=== PATIENT | female | born 1940 | race Caucasian/White ===

== ENCOUNTER 2021-05-26 13:11 | Inpatient (IN) | payer MEDICARE ==
[~2021-05-26] VITALS: Ht 160 cm; Wt 52.2 kg
[2021-05-26 13:44] LABS: BASOPHILS % 0.3 % (0.0-1.0); EOSINOPHILS # (AUTO) 0.1 (0.0-0.4); EOSINOPHILS % 1.1 % (0.0-6.0); HEMATOCRIT 36.9 % (34.2-44.1); HEMOGLOBIN 11.9 g/dL (12.0-16.0); LYMPHOCYTES # (AUTO) 1.6 (1.0-3.2); LYMPHOCYTES % 25.3 % (18.0-39.1); MEAN CORPUSCULAR HEMOGLOBIN 30.8 pg (28-32); MEAN CORPUSCULAR HGB CONC 32.2 g/dL (31-35); MEAN CORPUSCULAR VOLUME 95.6 fL (81-99); MONOCYTES # (AUTO) 0.6 (0.2-0.8); MONOCYTES % 9.7 % (4.4-11.3); NEUTROPHILS # (AUTO) 3.9 (2.1-6.9); NEUTROPHILS % 63.4 % (38.7-80.0); PLATELET COUNT 157 x10e3/uL (140-360); RED BLOOD COUNT 3.86 x10e6/uL (3.6-5.1); RED CELL DISTRIBUTION WIDTH 16.1 % (11.7-14.4)
[2021-05-26] MEDS ORDERED: SODIUM CHLORIDE 0.9% 1000ML 1,000 ML IV STA (13:48)
[2021-05-26 14:04] LABS: ALBUMIN 3.5 g/dL (3.5-5.0); ALBUMIN/GLOBULIN RATIO 0.7 (0.8-2.0); ANION GAP 14.8 mmol/L (8-16); CALCIUM 9.6 mg/dL (8.4-10.2); CREATININE, SERUM 2.39 mg/dL (0.57-1.11); POTASSIUM 4.8 mmol/L (3.5-5.1)
[2021-05-26 14:11] LABS: CREATINE KINASE MB 4.5 ng/mL (0-5.0)
[2021-05-26 14:33] LABS: CLARITY,URINE SL CLOUDY (CLEAR); COLOR,URINE AMBER (YELLOW); LEUKOCYTE ESTERASE ,URINE NEGATIVE (NEGATIVE); NITRITE,URINE POSITIVE (NEGATIVE)
[2021-05-26 14:34] LABS: KETONES,URINE TRACE (NEGATIVE); PROTEIN,URINE DIPSTICK TRACE (NEGATIVE); URINE UROBILINOGEN 0.2 mg/dL (0.2 - 1)
[2021-05-26 14:55] LABS: BACTERIA,URINE MANY /HPF; EPITHELIAL CELLS,URINE FEW /LPF; RBC,URINE 21-50 /HPF (0-5); WBC,URINE (MAN) 0-5 /HPF (0-5)
[2021-05-26 14:58] LABS: CALCIUM OXALATE CRYSTALS,UR MANY (FEW)
[2021-05-26] MEDS ORDERED: SODIUM CHLORIDE 0.9% 1000ML 1,000 ML IV ONE (15:45)
[2021-05-26] MEDS ORDERED: ACETAMINOPHEN 325 MG TAB PO PRN (15:45)
[2021-05-26] MEDS: CEFTRIAXONE 1 GM in SODIUM CHLORIDE 0.9% 50ML 50 ML IV SCH (15:56)
[2021-05-26 17:30] VITALS: BP 99/85
[2021-05-26 17:32] VITALS: BP 99/85
[2021-05-26 17:36] VITALS: BP 99/85
[2021-05-26] MEDS ORDERED: PLAVIX75 MG PO (18:31)
[2021-05-26] MEDS ORDERED: ATENOLOL50 MG PO (18:31)
[2021-05-26] MEDS ORDERED: METRONIDAZOLE500 MG PO (18:31)
[2021-05-26] MEDS ORDERED: ATORVASTATIN CA20 MG PO (18:31)
[2021-05-26] MEDS ORDERED: LOSARTAN POTAS100 MG PO (18:31)
[2021-05-26] MEDS ORDERED: VANCOCIN HCL250 MG PO (18:31)
[2021-05-26] MEDS ORDERED: AMLODIPINE BESYL5 MG PO (18:31)
[2021-05-26] MEDS ORDERED: FAMOTIDINE20 MG PO (18:31)
[2021-05-26] MEDS ORDERED: SERTRALINE HCL100 MG PO (18:31)
[2021-05-26 20:00] VITALS: BP 112/68
[2021-05-26 20:10] VITALS: BP 99/85
[2021-05-27] VITALS (8 sets, daily range): BP systolic 110–182; BP diastolic 62–84
[2021-05-27 02:27] LABS: CREATINE KINASE MB 2.9 ng/mL (0-5.0)
[2021-05-27 07:15] LABS: BASOPHILS % 0.4 % (0.0-1.0); EOSINOPHILS # (AUTO) 0.1 (0.0-0.4); EOSINOPHILS % 1.3 % (0.0-6.0); HEMATOCRIT 31.4 % (34.2-44.1); HEMOGLOBIN 9.9 g/dL (12.0-16.0); LYMPHOCYTES # (AUTO) 1.7 (1.0-3.2); LYMPHOCYTES % 34.7 % (18.0-39.1); MEAN CORPUSCULAR HEMOGLOBIN 30.4 pg (28-32); MEAN CORPUSCULAR HGB CONC 31.5 g/dL (31-35); MEAN CORPUSCULAR VOLUME 96.3 fL (81-99); MONOCYTES # (AUTO) 0.4 (0.2-0.8); MONOCYTES % 8.4 % (4.4-11.3); NEUTROPHILS # (AUTO) 2.6 (2.1-6.9); NEUTROPHILS % 54.8 % (38.7-80.0); PLATELET COUNT 102 x10e3/uL (140-360); RED BLOOD COUNT 3.26 x10e6/uL (3.6-5.1); RED CELL DISTRIBUTION WIDTH 15.5 % (11.7-14.4)
[2021-05-27 07:46] LABS: ALBUMIN 2.7 g/dL (3.5-5.0); ALBUMIN/GLOBULIN RATIO 0.8 (0.8-2.0); ANION GAP 9.4 mmol/L (8-16); CALCIUM 8.1 mg/dL (8.4-10.2); CREATININE, SERUM 1.48 mg/dL (0.57-1.11); POTASSIUM 4.4 mmol/L (3.5-5.1)
[2021-05-27 08:14] LABS: CREATINE KINASE MB 2.3 ng/mL (0-5.0)
[2021-05-27] MEDS: CEFTRIAXONE 1 GM in SODIUM CHLORIDE 0.9% 50ML 50 ML IV SCH (09:28)
[2021-05-27] MEDS: LOSARTAN POTASSIUM 100 MG TAB PO SCH (10:16)
[2021-05-27] MEDS: CLOPIDOGREL BISULFATE 75 MG TAB PO SCH (10:17)
[2021-05-27] MEDS: FAMOTIDINE 20 MG TAB PO SCH (10:17)
[2021-05-27] MEDS: ATENOLOL 50 MG TAB PO SCH (10:17)
[2021-05-27] MEDS: AMLODIPINE BESYLATE 5 MG TAB PO SCH (10:17)
[2021-05-27] MEDS: SODIUM CHLORIDE 0.9% 1000ML 1,000 ML IV SCH (12:16)
[2021-05-27] MEDS: ATORVASTATIN 20 MG TAB PO SCH (20:13)
[2021-05-27] MEDS: SERTRALINE HCL 100 MG TAB PO SCH (20:13)
[2021-05-28] VITALS (7 sets, daily range): BP systolic 161–182; BP diastolic 69–83
[2021-05-28] MEDS: SODIUM CHLORIDE 0.9% 1000ML 1,000 ML IV SCH ×2 (00:49→13:36)
[2021-05-28 06:15] LABS: BASOPHILS % 0.3 % (0.0-1.0); EOSINOPHILS # (AUTO) 0.1 (0.0-0.4); EOSINOPHILS % 0.8 % (0.0-6.0); HEMATOCRIT 31.7 % (34.2-44.1); HEMOGLOBIN 10.1 g/dL (12.0-16.0); MEAN CORPUSCULAR HEMOGLOBIN 30.4 pg (28-32); MEAN CORPUSCULAR HGB CONC 31.9 g/dL (31-35); MEAN CORPUSCULAR VOLUME 95.5 fL (81-99); MONOCYTES # (AUTO) 0.5 (0.2-0.8); MONOCYTES % 6.9 % (4.4-11.3); NEUTROPHILS # (AUTO) 4.5 (2.1-6.9); NEUTROPHILS % 63.7 % (38.7-80.0); PLATELET COUNT 120 x10e3/uL (140-360); RED BLOOD COUNT 3.32 x10e6/uL (3.6-5.1); RED CELL DISTRIBUTION WIDTH 15.5 % (11.7-14.4)
[2021-05-28 06:47] LABS: ANION GAP 9.5 mmol/L (8-16); CALCIUM 8.5 mg/dL (8.4-10.2); CREATININE, SERUM 1.08 mg/dL (0.57-1.11); MAGNESIUM 1.4 MG/DL (1.3-2.1); POTASSIUM 4.5 mmol/L (3.5-5.1)
[2021-05-28] MEDS: CEFTRIAXONE 1 GM in SODIUM CHLORIDE 0.9% 50ML 50 ML IV SCH (08:48)
[2021-05-28] MEDS: AMLODIPINE BESYLATE 5 MG TAB PO SCH (08:50)
[2021-05-28] MEDS: LOSARTAN POTASSIUM 100 MG TAB PO SCH (08:50)
[2021-05-28] MEDS: CLOPIDOGREL BISULFATE 75 MG TAB PO SCH (08:50)
[2021-05-28] MEDS: FAMOTIDINE 20 MG TAB PO SCH (08:50)
[2021-05-28] MEDS: VANCOMYCIN 250MG/5ML ORAL SOLN PO SCH (08:51)
[2021-05-28] MEDS: ATENOLOL 50 MG TAB PO SCH (08:51)
[2021-05-28] MEDS: DOCUSATE SODIUM 100 MG CAP PO SCH (09:00)
[2021-05-28] MEDS: SENNOSIDES 8.6 MG TAB PO SCH (09:00)
[2021-05-28] MEDS ORDERED: LOPERAMIDE HCL 2 MG CAP PO PRN (09:45)
[2021-05-28] MEDS: MAGNESIUM SULFATE 2GM/50ML 50 ML IV SCH ×2 (13:36→15:00)
[2021-05-28] MEDS: SERTRALINE HCL 100 MG TAB PO SCH (20:44)
[2021-05-28] MEDS: ATORVASTATIN 20 MG TAB PO SCH (20:44)
[2021-05-28] MEDS: ONDANSETRON HCL INJ 2MG/ML 2ML 2 MG/ML VIAL IV PRN (21:32)
[2021-05-29] VITALS: BP 118/88
[2021-05-29] MEDS: SODIUM CHLORIDE 0.9% 1000ML 1,000 ML IV SCH (02:48)
[2021-05-29 04:00] VITALS: BP 194/82
[2021-05-29 06:00] VITALS: BP 165/75
[2021-05-29 06:09] LABS: BASOPHILS % 0.3 % (0.0-1.0); EOSINOPHILS % 0.2 % (0.0-6.0); HEMATOCRIT 32.8 % (34.2-44.1); HEMOGLOBIN 10.7 g/dL (12.0-16.0); LYMPHOCYTES # (AUTO) 2.3 (1.0-3.2); MEAN CORPUSCULAR HEMOGLOBIN 30.6 pg (28-32); MEAN CORPUSCULAR HGB CONC 32.6 g/dL (31-35); MEAN CORPUSCULAR VOLUME 93.7 fL (81-99); MONOCYTES # (AUTO) 0.8 (0.2-0.8); MONOCYTES % 8.2 % (4.4-11.3); NEUTROPHILS # (AUTO) 6.9 (2.1-6.9); PLATELET COUNT 115 x10e3/uL (140-360); RED CELL DISTRIBUTION WIDTH 15.3 % (11.7-14.4)
[2021-05-29 06:35] LABS: ANION GAP 9.6 mmol/L (8-16); CALCIUM 8.1 mg/dL (8.4-10.2); CREATININE, SERUM 0.89 mg/dL (0.57-1.11); MAGNESIUM 1.8 MG/DL (1.3-2.1); POTASSIUM 3.6 mmol/L (3.5-5.1)
[2021-05-29 08:29] VITALS: BP 143/94
[2021-05-29] MEDS: CEFTRIAXONE 1 GM in SODIUM CHLORIDE 0.9% 50ML 50 ML IV SCH (09:49)
[2021-05-29] MEDS: DOCUSATE SODIUM 100 MG CAP PO SCH (09:49)
[2021-05-29] MEDS: FAMOTIDINE 20 MG TAB PO SCH (09:50)
[2021-05-29] MEDS: VANCOMYCIN 250MG/5ML ORAL SOLN PO SCH (09:50)
[2021-05-29] MEDS: ATENOLOL 50 MG TAB PO SCH (09:50)
[2021-05-29] MEDS: SENNOSIDES 8.6 MG TAB PO SCH (09:50)
[2021-05-29] MEDS: AMLODIPINE BESYLATE 5 MG TAB PO SCH (09:50)
[2021-05-29] MEDS: CLOPIDOGREL BISULFATE 75 MG TAB PO SCH (09:50)
[2021-05-29] MEDS: LOSARTAN POTASSIUM 100 MG TAB PO SCH (10:29)
[2021-05-29 20:26] VITALS: BP 169/67
[2021-05-29] MEDS: SERTRALINE HCL 100 MG TAB PO SCH (21:00)
[2021-05-29] MEDS: ATORVASTATIN 40 MG TAB PO SCH (21:00)
[2021-05-30] VITALS (7 sets, daily range): BP systolic 114–174; BP diastolic 52–69
[2021-05-30] MEDS: HYDRALAZINE HCL 20 MG/ML VIAL IV PRN ×2 (00:20→04:55)
[2021-05-30] MEDS: FAMOTIDINE 20 MG TAB PO SCH (09:02)
[2021-05-30] MEDS: AMLODIPINE BESYLATE 5 MG TAB PO SCH (09:02)
[2021-05-30] MEDS: LOSARTAN POTASSIUM 100 MG TAB PO SCH (09:02)
[2021-05-30] MEDS: CEFTRIAXONE 1 GM in SODIUM CHLORIDE 0.9% 50ML 50 ML IV SCH (09:02)
[2021-05-30] MEDS: CLOPIDOGREL BISULFATE 75 MG TAB PO SCH (09:02)
[2021-05-30] MEDS: DOCUSATE SODIUM 100 MG CAP PO SCH (09:02)
[2021-05-30] MEDS: SENNOSIDES 8.6 MG TAB PO SCH (09:03)
[2021-05-30] MEDS: ATENOLOL 50 MG TAB PO SCH (09:03)
[2021-05-30] MEDS: VANCOMYCIN 250MG/5ML ORAL SOLN PO SCH (09:03)
[2021-05-30] MEDS: ONDANSETRON HCL INJ 2MG/ML 2ML 2 MG/ML VIAL IV PRN (09:13)
[2021-05-30] MEDS ORDERED: AZITHROMYCIN 250 MG TAB PO SCH (09:30)
[2021-05-30] MEDS ORDERED: CHOLESTYRAMINE 4 GM PACKET PO PRN (14:30)
[2021-05-30] MEDS ORDERED: FUROSEMIDE INJ 10 MG/ML 4 ML VIAL IV ONE (15:00)
[2021-05-30] MEDS: ATORVASTATIN 40 MG TAB PO SCH (20:49)
[2021-05-30] MEDS: SERTRALINE HCL 100 MG TAB PO SCH (20:50)
[2021-05-31 05:26] LABS: ANION GAP 14.5 mmol/L (8-16); CALCIUM 8.6 mg/dL (8.4-10.2); CREATININE, SERUM 1.14 mg/dL (0.57-1.11); POTASSIUM 3.5 mmol/L (3.5-5.1)
[2021-05-31 05:41] VITALS: BP 173/78
[2021-05-31] MEDS: HYDRALAZINE HCL 20 MG/ML VIAL IV PRN ×2 (05:55→09:57)
[2021-05-31 06:51] VITALS: BP 158/60
[2021-05-31] MEDS: CLOPIDOGREL BISULFATE 75 MG TAB PO SCH (08:13)
[2021-05-31] MEDS: ATENOLOL 50 MG TAB PO SCH (08:13)
[2021-05-31] MEDS: FAMOTIDINE 20 MG TAB PO SCH (08:13)
[2021-05-31] MEDS: AMLODIPINE BESYLATE 5 MG TAB PO SCH (08:13)
[2021-05-31] MEDS: CEFTRIAXONE 1 GM in SODIUM CHLORIDE 0.9% 50ML 50 ML IV SCH (08:13)
[2021-05-31] MEDS: LOSARTAN POTASSIUM 100 MG TAB PO SCH (08:13)
[2021-05-31 08:17] VITALS: BP 182/67
[2021-05-31 08:20] VITALS: BP 182/67
[2021-05-31] MEDS ORDERED: AZITHROMYCIN 250 MG TAB PO SCH (09:00)
[2021-05-31 12:05] VITALS: BP 136/55
[2021-05-31 15:56] VITALS: BP 125/62
[2021-05-31] MEDS ORDERED: HYDRALAZINE HCL 25 MG TAB PO SCH (17:00)
== END 2021-05-31 16:34 | disposition home or self-care (01) | DRG 193 ==
LOC: ER 13:57 → ERHOLD 15:34 → OBSVTOIN 15:34 → INTOOBSV 15:34 → MED/SURG2 16:48
PROVIDERS: ADMIT Internal Medicine; ATTEND Internal Medicine
DX: J18.9 Pneumonia, unspecified organism (principal); G93.41 Metabolic encephalopathy; N17.9 Acute kidney failure, unspecified; E44.1 Mild protein-calorie malnutrition; R40.0 Somnolence; I25.10 Atherosclerotic heart disease of native coronary artery without angina pectoris; I12.9 Hypertensive chronic kidney disease with stage 1 through stage 4 chronic kidney disease, or unspecified chronic kidney disease; N18.32 Chronic kidney disease, stage 3b; K21.9 Gastro-esophageal reflux disease without esophagitis; Z88.5 Allergy status to narcotic agent; Z88.2 Allergy status to sulfonamides; Z91.041 Radiographic dye allergy status; Z20.822 Contact with and (suspected) exposure to COVID-19; Z86.19 Personal history of other infectious and parasitic diseases; Z68.20 Body mass index [BMI] 20.0-20.9, adult
CPT/HCPCS: 36415; 70450; 71045; 71046; 74176; 80048; 80053; 81001; 82140; 82550; 82553; 82948; 83735; 84484; 85025; 87086; 87493; 93005; 94799; 97139; 99251; 99284; J0360; J0456; J0696; J1940; J2405; J3475; J7030; J7050; U0002

== ENCOUNTER 2022-06-13 19:49 | Emergency (ER) | payer MEDICARE, OTHER ==
[~2022-06-13] VITALS: Ht 160 cm; Wt 52.2 kg
[~2022-06-13 19:49] MED LIST: AMLODIPINE BESYL5 MG PO; ATENOLOL50 MG PO; ATORVASTATIN CA20 MG PO; FAMOTIDINE20 MG PO; LOSARTAN POTAS100 MG PO; METRONIDAZOLE500 MG PO; PLAVIX75 MG PO; SERTRALINE HCL100 MG PO; VANCOCIN HCL250 MG PO
[2022-06-13] MEDS ORDERED: DOXYCYCLINE HY100 MG PO (21:42)
[2022-06-13 21:53] VITALS: BP 153/85
== END 2022-06-13 21:48 | disposition home or self-care (01) ==
LOC: ER 20:12
DX: L97.829 Non-pressure chronic ulcer of other part of left lower leg with unspecified severity (principal); L97.819 Non-pressure chronic ulcer of other part of right lower leg with unspecified severity; I10 Essential (primary) hypertension; N28.9 Disorder of kidney and ureter, unspecified; I25.10 Atherosclerotic heart disease of native coronary artery without angina pectoris
CPT/HCPCS: 99282

== ENCOUNTER 2022-08-06 20:15 | Emergency (ER) | payer MEDICARE ==
[~2022-08-06] VITALS: Ht 160 cm; Wt 52.2 kg
[~2022-08-06 20:15] MED LIST changes: +DOXYCYCLINE HY100 MG PO
[2022-08-06] MEDS ORDERED: HYDROCODONE/APAP 5MG-325MG TAB PO ONE (20:30)
[2022-08-06] MEDS ORDERED: HYDROCODON-ACE1 EA11 PO (22:36)
[2022-08-06 23:00] VITALS: BP 155/68; PULSE 65; RESP 16; TEMP 98.2; O2SAT 100
== END 2022-08-06 22:50 | disposition home or self-care (01) ==
LOC: ER 20:17
DX: M25.531 Pain in right wrist (principal); S52.591A Other fractures of lower end of right radius, initial encounter for closed fracture; S52.691A Other fracture of lower end of right ulna, initial encounter for closed fracture; W01.0XXA Fall on same level from slipping, tripping and stumbling without subsequent striking against object, initial encounter; Y92.89 Other specified places as the place of occurrence of the external cause
CPT/HCPCS: 99284

== ENCOUNTER 2023-09-20 11:13 | Emergency (ER) | payer MEDICARE ==
[~2023-09-20] VITALS: Ht 160 cm; Wt 52.2 kg
[~2023-09-20 11:13] MED LIST changes: +HYDROCODON-ACE1 EA11 PO
[2023-09-20 11:15] VITALS: TEMP 97.9
[2023-09-20 12:03] LABS: BASOPHILS % 0.4 % (0.0-1.0); EOSINOPHILS % 0.4 % (0.0-6.0); HEMATOCRIT 34.2 % (34.2-44.1); HEMOGLOBIN 11.4 g/dL (12.0-16.0); LYMPHOCYTES # (AUTO) 1.3 (1.0-3.2); LYMPHOCYTES % 17.3 % (18.0-39.1); MEAN CORPUSCULAR HEMOGLOBIN 32.7 pg (28-32); MEAN CORPUSCULAR HGB CONC 33.3 g/dL (31-35); MONOCYTES # (AUTO) 0.7 (0.2-0.8); MONOCYTES % 8.9 % (4.4-11.3); NEUTROPHILS # (AUTO) 5.6 (2.1-6.9); NEUTROPHILS % 72.7 % (38.7-80.0); PLATELET COUNT 150 x10e3/uL (140-360); RED BLOOD COUNT 3.49 x10e6/uL (3.6-5.1); RED CELL DISTRIBUTION WIDTH 13.2 % (11.7-14.4); WHITE BLOOD COUNT 7.65 x10e3/uL (4.8-10.8)
[2023-09-20 12:38] LABS: ALBUMIN 3.1 g/dL (3.5-5.0); ALBUMIN/GLOBULIN RATIO 0.7 (0.8-2.0); ANION GAP 16.5 mmol/L (8-16); BILIRUBIN,TOTAL 0.6 mg/dL (0.2-1.2); CALCIUM 9.4 mg/dL (8.4-10.2); CREATININE, SERUM 1.73 mg/dL (0.57-1.11); POTASSIUM 3.5 mmol/L (3.5-5.1); TOTAL PROTEIN 7.7 g/dL (6.5-8.1)
[2023-09-20] MEDS: SODIUM CHLORIDE 0.9% 1000ML 1,000 ML IV ONE (12:45)
[2023-09-20 14:34] LABS: CLARITY,URINE SL CLOUDY (CLEAR); COLOR,URINE YELLOW (YELLOW); GLUCOSE, URINE NEGATIVE (NEGATIVE); KETONES,URINE NEGATIVE (NEGATIVE); LEUKOCYTE ESTERASE ,URINE NEGATIVE (NEGATIVE); NITRITE,URINE NEGATIVE (NEGATIVE); PH,URINE 5.5 (5 - 7); PROTEIN,URINE DIPSTICK 1+ (NEGATIVE); URINE UROBILINOGEN 0.2 mg/dL (0.2 - 1)
[2023-09-20 14:35] LABS: BILIRUBIN,URINE NEGATIVE (NEGATIVE)
[2023-09-20 14:45] LABS: BACTERIA,URINE MODERATE /HPF; EPITHELIAL CELLS,URINE RARE /LPF; RBC,URINE 0-5 /HPF (0-5); WBC,URINE (MAN) 0-5 /HPF (0-5)
[2023-09-20 15:24] VITALS: PULSE 63; RESP 17; O2SAT 100
== END 2023-09-20 16:46 | disposition home or self-care (01) ==
LOC: ER 11:28
DX: R19.7 Diarrhea, unspecified (principal); E86.1 Hypovolemia; M25.532 Pain in left wrist; M25.432 Effusion, left wrist; I10 Essential (primary) hypertension; I25.10 Atherosclerotic heart disease of native coronary artery without angina pectoris; N28.9 Disorder of kidney and ureter, unspecified; M19.09 Primary osteoarthritis, other specified site
CPT/HCPCS: 36415; 73110; 74176; 80053; 81001; 83690; 85025; 99284; J7030

== ENCOUNTER 2024-02-09 13:50 | Inpatient (IN) | payer MEDICARE ==
[~2024-02-09] VITALS: Ht 167.6 cm; Wt 52.2 kg
[2024-02-09] VITALS (7 sets, daily range): BP systolic 123–155; BP diastolic 40–57; PULSE 66–77; RESP 16–18; TEMP 97.6–98.4; O2SAT 94–100
[2024-02-09 14:22] LABS: BASOPHILS % 0.2 % (0.0-1.0); EOSINOPHILS # (AUTO) 0.1 (0.0-0.4); EOSINOPHILS % 0.6 % (0.0-6.0); HEMATOCRIT 33.7 % (34.2-44.1); HEMOGLOBIN 10.2 g/dL (12.0-16.0); LYMPHOCYTES # (AUTO) 1.5 (1.0-3.2); LYMPHOCYTES % 14.9 % (18.0-39.1); MEAN CORPUSCULAR HEMOGLOBIN 31.6 pg (28-32); MEAN CORPUSCULAR HGB CONC 30.3 g/dL (31-35); MEAN CORPUSCULAR VOLUME 104.3 fL (81-99); MONOCYTES # (AUTO) 0.7 (0.2-0.8); MONOCYTES % 6.8 % (4.4-11.3); NEUTROPHILS # (AUTO) 7.9 (2.1-6.9); NEUTROPHILS % 77.1 % (38.7-80.0); PLATELET COUNT 104 x10e3/uL (140-360); RED BLOOD COUNT 3.23 x10e6/uL (3.6-5.1); RED CELL DISTRIBUTION WIDTH 12.3 % (11.7-14.4); WHITE BLOOD COUNT 10.23 x10e3/uL (4.8-10.8)
[2024-02-09 14:41] LABS: ALBUMIN 3.1 g/dL (3.5-5.0); ALBUMIN/GLOBULIN RATIO 0.7 (0.8-2.0); ANION GAP 15.8 mmol/L (8-16); BILIRUBIN,TOTAL 0.5 mg/dL (0.2-1.2); CALCIUM 9.2 mg/dL (8.4-10.2); CREATININE, SERUM 2.88 mg/dL (0.57-1.11); POTASSIUM 3.8 mmol/L (3.5-5.1); TOTAL PROTEIN 7.4 g/dL (6.5-8.1)
[2024-02-09 14:47] LABS: TROPONIN I 0.022 ng/mL (0-0.300)
[2024-02-09] MEDS ORDERED: TERAZOSIN HCL1 MG PO (15:11)
[2024-02-09] MEDS ORDERED: LYRICA25 MG PO (15:11)
[2024-02-09] MEDS ORDERED: MEMANTINE HCL10 MG PO (15:11)
[2024-02-09] MEDS ORDERED: SODIUM CHLORIDE FLUSH 10 ML SYR INJ PRN (15:45)
[2024-02-09] MEDS ORDERED: CEFTRIAXONE 1 GM VIAL IM ONE (15:45)
[2024-02-09] MEDS ORDERED: ONDANSETRON HCL INJ 2MG/ML 2ML 2 MG/ML VIAL IV PRN (15:45)
[2024-02-09] MEDS ORDERED: SODIUM CHLORIDE 0.9% 1000ML 1,000 ML ONE (15:52)
[2024-02-09] MEDS: SODIUM CHLORIDE 0.9% 1000ML 1,000 ML IV SCH (15:57)
[2024-02-09] MEDS: Doxycycline IV 100 MG in SODIUM CHLORIDE 0.9% 100 ML IV ONE (16:34)
[2024-02-09] MEDS ORDERED: POLYETHYLENE GLYCOL 3350 17 GM PACK PO PRN (17:00)
[2024-02-09] MEDS: DOCUSATE SODIUM 100 MG CAP PO SCH (17:00)
[2024-02-09] MEDS: SERTRALINE HCL 50 MG TAB PO SCH (17:21)
[2024-02-09] MEDS: MEMANTINE 10 MG TAB PO SCH (17:21)
[2024-02-09] MEDS: ATORVASTATIN 20 MG TAB PO SCH (20:08)
[2024-02-09] MEDS ORDERED: GUAIFENESIN/DEXTROMETHORPHAN LIQD 5 ML UDC PO PRN (21:15)
[2024-02-09] MEDS ORDERED: MELATONIN 3 MG TAB PO PRN (21:15)
[2024-02-10] VITALS (11 sets, daily range): BP systolic 104–177; BP diastolic 7–79; PULSE 70–92; RESP 18–20; TEMP 97.7–99.6; O2SAT 97–100
[2024-02-10] MEDS: HYDRALAZINE HCL 20 MG/ML VIAL IV PRN (05:32)
[2024-02-10] MEDS: ACETAMINOPHEN 325 MG TAB PO PRN (05:32)
[2024-02-10 06:39] LABS: BASOPHILS % 0.2 % (0.0-1.0); EOSINOPHILS % 0.5 % (0.0-6.0); HEMATOCRIT 31.7 % (34.2-44.1); LYMPHOCYTES % 22.9 % (18.0-39.1); MEAN CORPUSCULAR HEMOGLOBIN 32.6 pg (28-32); MEAN CORPUSCULAR HGB CONC 31.5 g/dL (31-35); MEAN CORPUSCULAR VOLUME 103.3 fL (81-99); MONOCYTES # (AUTO) 0.6 (0.2-0.8); MONOCYTES % 6.3 % (4.4-11.3); NEUTROPHILS # (AUTO) 6.2 (2.1-6.9); NEUTROPHILS % 69.8 % (38.7-80.0); PLATELET COUNT 99 x10e3/uL (140-360); RED BLOOD COUNT 3.07 x10e6/uL (3.6-5.1); RED CELL DISTRIBUTION WIDTH 12.4 % (11.7-14.4); RETICULOCYTE % 1.6 % (0.8-2.2); WHITE BLOOD COUNT 8.83 x10e3/uL (4.8-10.8)
[2024-02-10 07:17] LABS: ALBUMIN 2.8 g/dL (3.5-5.0); ALBUMIN/GLOBULIN RATIO 0.7 (0.8-2.0); BILIRUBIN,TOTAL 0.3 mg/dL (0.2-1.2); CHOL/HDL RATIO 2.9 (3.0-3.6); CREATININE, SERUM 2.06 mg/dL (0.57-1.11); MAGNESIUM 1.6 MG/DL (1.3-2.1); PHOSPHORUS 2.5 MG/DL (2.3-4.7); TOTAL PROTEIN 6.8 g/dL (6.5-8.1)
[2024-02-10 07:29] LABS: FERRITIN 344.79 ng/mL (4.63-204.00); FREE T4 (FREE THYROXINE) 0.81 ng/dL (0.8-1.8); THYROID STIMULATING HORMONE 0.466 uIU/mL (0.350-4.940)
[2024-02-10 07:47] LABS: FOLATE 12.3 ng/mL (7.0-15.4)
[2024-02-10] MEDS: MULTIVITAMINS/MINERALS TAB PO SCH (08:17)
[2024-02-10] MEDS: ATENOLOL 50 MG TAB PO SCH (08:18)
[2024-02-10] MEDS: TERAZOSIN HCL 1 MG CAP PO SCH (08:18)
[2024-02-10] MEDS: HEPARIN SOD (PORCINE) 5,000 UNIT/ML VIAL SC SCH (08:20)
[2024-02-10] MEDS: VANCOMYCIN HCL 125 MG CAPSULE PO SCH (10:31)
[2024-02-10] MEDS: AMLODIPINE BESYLATE 10 MG TAB PO SCH (10:31)
[2024-02-10] MEDS: SODIUM BICARBONATE 8.4% SYRING 150 ML in DEXTROSE 5% 1,000 ML IV SCH (10:31)
[2024-02-10] MEDS: SODIUM BICARBONATE 650 MG TAB PO SCH (15:05)
[2024-02-11] VITALS (7 sets, daily range): BP systolic 134–190; BP diastolic 55–70; PULSE 67–81; RESP 18; TEMP 97.3–98.8; O2SAT 98–99
[2024-02-11 06:19] LABS: ALBUMIN 2.8 g/dL (3.5-5.0); ALBUMIN/GLOBULIN RATIO 0.7 (0.8-2.0); ANION GAP 14.5 mmol/L (8-16); BILIRUBIN,TOTAL 0.4 mg/dL (0.2-1.2); CALCIUM 9.4 mg/dL (8.4-10.2); CREATININE, SERUM 1.63 mg/dL (0.57-1.11); POTASSIUM 3.5 mmol/L (3.5-5.1); TOTAL PROTEIN 6.7 g/dL (6.5-8.1)
[2024-02-11] MEDS: HYDROCODONE/APAP 5MG-325MG TAB PO PRN (09:18)
[2024-02-11] MEDS: NIFEDIPINE CR 30 MG TAB PO SCH (10:54)
[2024-02-11] MEDS: POTASSIUM CHLORIDE 20MEQ/100ML 200 ML IV ONE (10:55)
[2024-02-12] VITALS (7 sets, daily range): BP systolic 133–172; BP diastolic 45–66; PULSE 76–83; RESP 16–18; TEMP 98.6–99.2; O2SAT 93–97
[2024-02-12 06:26] LABS: ALBUMIN 2.6 g/dL (3.5-5.0); ALBUMIN/GLOBULIN RATIO 0.7 (0.8-2.0); ANION GAP 14.2 mmol/L (8-16); BILIRUBIN,TOTAL 0.4 mg/dL (0.2-1.2); CALCIUM 9.1 mg/dL (8.4-10.2); CREATININE, SERUM 1.65 mg/dL (0.57-1.11); TOTAL PROTEIN 6.5 g/dL (6.5-8.1)
[2024-02-12 06:49] LABS: POTASSIUM 3.2 mmol/L (3.5-5.1)
[2024-02-12 07:49] LABS: BASOPHILS % 0.3 % (0.0-1.0); EOSINOPHILS # (AUTO) 0.1 (0.0-0.4); EOSINOPHILS % 0.9 % (0.0-6.0); HEMATOCRIT 30.4 % (34.2-44.1); HEMOGLOBIN 9.4 g/dL (12.0-16.0); LYMPHOCYTES # (AUTO) 1.8 (1.0-3.2); LYMPHOCYTES % 23.3 % (18.0-39.1); MEAN CORPUSCULAR HEMOGLOBIN 31.2 pg (28-32); MEAN CORPUSCULAR HGB CONC 30.9 g/dL (31-35); MONOCYTES # (AUTO) 0.5 (0.2-0.8); MONOCYTES % 6.5 % (4.4-11.3); NEUTROPHILS # (AUTO) 5.3 (2.1-6.9); NEUTROPHILS % 68.7 % (38.7-80.0); PLATELET COUNT 136 x10e3/uL (140-360); RED BLOOD COUNT 3.01 x10e6/uL (3.6-5.1); RED CELL DISTRIBUTION WIDTH 12.1 % (11.7-14.4); WHITE BLOOD COUNT 7.68 x10e3/uL (4.8-10.8)
[2024-02-12] MEDS: POTASSIUM CHLORIDE 20MEQ/100ML 100 ML IV SCH (08:46)
[2024-02-12] MEDS: MAGNESIUM SULFATE 2GM/50ML 50 ML IV ONE (14:32)
[2024-02-12] MEDS ORDERED: CEFUROXIME250 MG PO (15:40)
[2024-02-12] MEDS ORDERED: GUAIFENESIN-DM 15 ML PO (15:40)
[2024-02-12] MEDS ORDERED: ACETAMINOPHEN325 M1 PO (15:40)
[2024-02-12] MEDS ORDERED: AZITHROMYCIN250 MG PO (15:40)
[2024-02-12] MEDS ORDERED: ONDANSETRON ODT4 MG PO (15:40)
[2024-02-12] MEDS ORDERED: MULTI-VITAMIN1 EACH PO (15:40)
[2024-02-12] MEDS ORDERED: NIFEDIPINE ER30 M1 PO (15:40)
[2024-02-13] VITALS: BP 143/51; PULSE 78; RESP 18; TEMP 98.9; O2SAT 95
[2024-02-13 00:51] VITALS: BP 139/54; PULSE 83; RESP 18; TEMP 98.9; O2SAT 94
[2024-02-13 04:00] VITALS: BP 139/67; PULSE 79; RESP 18; TEMP 98.7; O2SAT 95
[2024-02-13 08:00] VITALS: BP 133/46; PULSE 80; RESP 17; TEMP 98.6; O2SAT 93
[2024-02-13 08:56] VITALS: BP 133/46; PULSE 80; RESP 17; TEMP 98.6; O2SAT 93
[2024-02-13 09:19] VITALS: BP 133/46; PULSE 80
== END 2024-02-13 10:01 | disposition home health service (06) | DRG 194 ==
LOC: ER 13:57 → ERHOLD 15:43 → MED/SURG2 16:15 → OBSVTOIN 02-11 09:29
PROVIDERS: ADMIT Internal Medicine; ATTEND Internal Medicine
DX: J18.9 Pneumonia, unspecified organism (principal); E87.20 Acidosis, unspecified; N17.9 Acute kidney failure, unspecified; D69.6 Thrombocytopenia, unspecified; Z66 Do not resuscitate; I12.9 Hypertensive chronic kidney disease with stage 1 through stage 4 chronic kidney disease, or unspecified chronic kidney disease; N18.30 Chronic kidney disease, stage 3 unspecified; D63.1 Anemia in chronic kidney disease; E87.6 Hypokalemia; I73.9 Peripheral vascular disease, unspecified; M19.90 Unspecified osteoarthritis, unspecified site; I25.10 Atherosclerotic heart disease of native coronary artery without angina pectoris; E78.5 Hyperlipidemia, unspecified; M25.552 Pain in left hip; M79.605 Pain in left leg; Z91.81 History of falling; Z90.710 Acquired absence of both cervix and uterus; Z88.5 Allergy status to narcotic agent; Z88.0 Allergy status to penicillin; Z91.041 Radiographic dye allergy status; Z91.040 Latex allergy status; Z88.2 Allergy status to sulfonamides; Z79.02 Long term (current) use of antithrombotics/antiplatelets; Z84.1 Family history of disorders of kidney and ureter
CPT/HCPCS: 36415; 71250; 80053; 80061; 82550; 82607; 82728; 82746; 82948; 83036; 83540; 83735; 84100; 84439; 84443; 84466; 84484; 85025; 85045; 93005; 93970; 94799; 99284; G0378; J0360; J0696; J1644; J3475; J3480; J7030; J7050; J7070

== ENCOUNTER 2024-02-19 13:06 | Emergency (ER) | payer MEDICARE ==
[~2024-02-19] VITALS: Ht 167.6 cm; Wt 52.2 kg
[~2024-02-19 13:06] MED LIST changes: +ACETAMINOPHEN325 M1 PO; +AZITHROMYCIN250 MG PO; +CEFUROXIME250 MG PO; +GUAIFENESIN-DM 15 ML PO; +LYRICA25 MG PO; +MEMANTINE HCL10 MG PO; +MULTI-VITAMIN1 EACH PO; +NIFEDIPINE ER30 M1 PO; +ONDANSETRON ODT4 MG PO; +TERAZOSIN HCL1 MG PO
[2024-02-19] MEDS: SODIUM CHLORIDE 0.9% 1000ML 1,000 ML IV STA (14:28)
[2024-02-19 14:30] LABS: BASOPHILS % 0.2 % (0.0-1.0); EOSINOPHILS # (AUTO) 0.1 (0.0-0.4); EOSINOPHILS % 0.7 % (0.0-6.0); HEMATOCRIT 30.6 % (34.2-44.1); HEMOGLOBIN 9.3 g/dL (12.0-16.0); LYMPHOCYTES # (AUTO) 1.4 (1.0-3.2); LYMPHOCYTES % 13.2 % (18.0-39.1); MEAN CORPUSCULAR HGB CONC 30.4 g/dL (31-35); MONOCYTES # (AUTO) 0.6 (0.2-0.8); MONOCYTES % 6.2 % (4.4-11.3); NEUTROPHILS # (AUTO) 8.1 (2.1-6.9); NEUTROPHILS % 79.2 % (38.7-80.0); PLATELET COUNT 215 x10e3/uL (140-360); RED CELL DISTRIBUTION WIDTH 12.3 % (11.7-14.4); WHITE BLOOD COUNT 10.25 x10e3/uL (4.8-10.8)
[2024-02-19 15:02] LABS: ALBUMIN 2.6 g/dL (3.5-5.0); ALBUMIN/GLOBULIN RATIO 0.6 (0.8-2.0); ANION GAP 17.2 mmol/L (8-16); BILIRUBIN,TOTAL 0.3 mg/dL (0.2-1.2); CALCIUM 8.5 mg/dL (8.4-10.2); CREATININE, SERUM 2.05 mg/dL (0.57-1.11); POTASSIUM 4.2 mmol/L (3.5-5.1); TOTAL PROTEIN 6.8 g/dL (6.5-8.1)
[2024-02-19 16:26] VITALS: PULSE 77; RESP 16; TEMP 98.7; O2SAT 97
== END 2024-02-19 17:30 | disposition home or self-care (01) ==
LOC: ER 13:15
DX: R19.7 Diarrhea, unspecified (principal); I10 Essential (primary) hypertension; N28.9 Disorder of kidney and ureter, unspecified; I25.10 Atherosclerotic heart disease of native coronary artery without angina pectoris; M19.09 Primary osteoarthritis, other specified site
CPT/HCPCS: 36415; 80053; 85025; 87045; 99284

== ENCOUNTER 2024-04-04 17:47 | Inpatient (IN) | payer MEDICARE ==
[~2024-04-04] VITALS: Ht 167.6 cm; Wt 52.2 kg
[2024-04-04] MEDS: SODIUM CHLORIDE 0.9% 1000ML 1,000 ML IV SCH (19:15)
[2024-04-04 19:55] LABS: BASOPHILS % 0.3 % (0.0-1.0); HEMATOCRIT 41.5 % (34.2-44.1); HEMOGLOBIN 12.3 g/dL (12.0-16.0); LYMPHOCYTES # (AUTO) 1.1 (1.0-3.2); LYMPHOCYTES % 11.8 % (18.0-39.1); MEAN CORPUSCULAR HEMOGLOBIN 30.8 pg (28-32); MEAN CORPUSCULAR HGB CONC 29.6 g/dL (31-35); MONOCYTES # (AUTO) 0.4 (0.2-0.8); MONOCYTES % 4.4 % (4.4-11.3); NEUTROPHILS # (AUTO) 7.6 (2.1-6.9); PLATELET COUNT 92 x10e3/uL (140-360); RED BLOOD COUNT 3.99 x10e6/uL (3.6-5.1); RED CELL DISTRIBUTION WIDTH 14.7 % (11.7-14.4)
[2024-04-04] MEDS: ACETAMINOPHEN 1000 MG/100 ML IV STA (19:55)
[2024-04-04 20:18] LABS: CORONAVIRUS COVID-19 AG NEGATIVE (NEGATIVE); INFLUENZA A AG NEGATIVE (NEGATIVE); INFLUENZA B AG NEGATIVE (NEGATIVE)
[2024-04-04 20:18] LABS: ALBUMIN 3.3 g/dL (3.5-5.0); ALBUMIN/GLOBULIN RATIO 0.7 (0.8-2.0); ANION GAP 19.5 mmol/L (8-16); BILIRUBIN,TOTAL 0.8 mg/dL (0.2-1.2); CALCIUM 9.8 mg/dL (8.4-10.2); CREATININE, SERUM 2.33 mg/dL (0.57-1.11); POTASSIUM 4.5 mmol/L (3.5-5.1)
[2024-04-04] MEDS: SODIUM CHLORIDE 0.9% 1000ML 1,000 ML IV ONE (20:28)
[2024-04-04 21:15] VITALS: TEMP 98.9
[2024-04-04 21:18] LABS: CLARITY,URINE CLEAR (CLEAR); COLOR,URINE YELLOW (YELLOW); GLUCOSE, URINE NEGATIVE (NEGATIVE); KETONES,URINE NEGATIVE (NEGATIVE); LEUKOCYTE ESTERASE ,URINE NEGATIVE (NEGATIVE); NITRITE,URINE NEGATIVE (NEGATIVE); PH,URINE 5 (5 - 7); PROTEIN,URINE DIPSTICK >=300 (NEGATIVE)
[2024-04-04 21:19] LABS: BILIRUBIN,URINE NEGATIVE (NEGATIVE); URINE UROBILINOGEN 0.2 mg/dL (0.2 - 1)
[2024-04-04 21:29] LABS: BACTERIA,URINE MODERATE /HPF; EPITHELIAL CELLS,URINE FEW /LPF; RBC,URINE 21-50 /HPF (0-5); WBC,URINE (MAN) 0-5 /HPF (0-5)
[2024-04-04 22:15] VITALS: PULSE 88; RESP 17
[2024-04-04] MEDS ORDERED: ONDANSETRON HCL INJ 2MG/ML 2ML 2 MG/ML VIAL IV PRN (23:30)
[2024-04-04] MEDS ORDERED: ACETAMINOPHEN 1000 MG/100 ML IV PRN (23:30)
[2024-04-05] VITALS (10 sets, daily range): BP systolic 153–172; BP diastolic 55–69; PULSE 96–102; RESP 15–18; TEMP 97.9–99.4; O2SAT 95–100
[2024-04-05] MEDS: METRONIDAZOLE 500MG/NS 100ML 100 ML IV SCH
[2024-04-05] MEDS ORDERED: MELATONIN 5 MG TABLET PO PRN (00:30)
[2024-04-05] MEDS ORDERED: FAMOTIDINE 20 MG TAB PO PRN (00:30)
[2024-04-05] MEDS ORDERED: HYDROCODONE/APAP 5MG-325MG TAB PO PRN (00:30)
[2024-04-05] MEDS ORDERED: PROBIOTIC & AC1 EACH PO (00:45)
[2024-04-05] MEDS ORDERED: ASPIRIN81 MG PO (00:46)
[2024-04-05] MEDS: SODIUM CHLORIDE 0.9% 1000ML 1,000 ML IV SCH (00:49)
[2024-04-05] MEDS: HYDROCODONE/APAP 5MG-325MG TAB PO PRN (01:35)
[2024-04-05 08:38] LABS: BASOPHILS % 0.2 % (0.0-1.0); HEMATOCRIT 35.1 % (34.2-44.1); HEMOGLOBIN 10.5 g/dL (12.0-16.0); LYMPHOCYTES # (AUTO) 0.8 (1.0-3.2); LYMPHOCYTES % 9.1 % (18.0-39.1); MEAN CORPUSCULAR HEMOGLOBIN 30.9 pg (28-32); MEAN CORPUSCULAR HGB CONC 29.9 g/dL (31-35); MEAN CORPUSCULAR VOLUME 103.2 fL (81-99); MONOCYTES # (AUTO) 0.4 (0.2-0.8); MONOCYTES % 4.6 % (4.4-11.3); NEUTROPHILS % 85.4 % (38.7-80.0); PLATELET COUNT 88 x10e3/uL (140-360); RED CELL DISTRIBUTION WIDTH 14.7 % (11.7-14.4); WHITE BLOOD COUNT 8.24 x10e3/uL (4.8-10.8)
[2024-04-05 08:57] LABS: ALBUMIN 2.7 g/dL (3.5-5.0); ALBUMIN/GLOBULIN RATIO 0.7 (0.8-2.0); ANION GAP 14.6 mmol/L (8-16); BILIRUBIN,TOTAL 0.4 mg/dL (0.2-1.2); CREATININE, SERUM 2.06 mg/dL (0.57-1.11); POTASSIUM 3.6 mmol/L (3.5-5.1); TOTAL PROTEIN 6.7 g/dL (6.5-8.1)
[2024-04-05] MEDS: SERTRALINE HCL 50 MG TAB PO SCH (16:41)
[2024-04-05] MEDS: PREGABALIN 25 MG CAP PO SCH (16:41)
[2024-04-05] MEDS: MEMANTINE 10 MG TAB PO SCH (16:41)
[2024-04-05 20:06] LABS: CDIFF AG QUIK CHEK NEGATIVE (NEGATIVE); CDIFF TOX QUIK CHEK NEGATIVE (NEGATIVE)
[2024-04-05] MEDS: ATORVASTATIN 20 MG TAB PO SCH (21:17)
[2024-04-06] VITALS (9 sets, daily range): BP systolic 134–174; BP diastolic 51–62; PULSE 69–93; RESP 17–18; TEMP 98.2–98.6; O2SAT 92–100
[2024-04-06 05:31] LABS: BASOPHILS % 0.3 % (0.0-1.0); EOSINOPHILS # (AUTO) 0.1 (0.0-0.4); EOSINOPHILS % 1.4 % (0.0-6.0); HEMATOCRIT 33.5 % (34.2-44.1); HEMOGLOBIN 9.9 g/dL (12.0-16.0); LYMPHOCYTES # (AUTO) 0.8 (1.0-3.2); LYMPHOCYTES % 11.1 % (18.0-39.1); MEAN CORPUSCULAR HEMOGLOBIN 30.1 pg (28-32); MEAN CORPUSCULAR HGB CONC 29.6 g/dL (31-35); MEAN CORPUSCULAR VOLUME 101.8 fL (81-99); MONOCYTES # (AUTO) 0.4 (0.2-0.8); MONOCYTES % 5.2 % (4.4-11.3); NEUTROPHILS # (AUTO) 5.7 (2.1-6.9); NEUTROPHILS % 81.3 % (38.7-80.0); PLATELET COUNT 78 x10e3/uL (140-360); RED BLOOD COUNT 3.29 x10e6/uL (3.6-5.1); RED CELL DISTRIBUTION WIDTH 14.3 % (11.7-14.4); WHITE BLOOD COUNT 6.95 x10e3/uL (4.8-10.8)
[2024-04-06 06:08] LABS: ALBUMIN 2.4 g/dL (3.5-5.0); ALBUMIN/GLOBULIN RATIO 0.7 (0.8-2.0); ANION GAP 11.7 mmol/L (8-16); BILIRUBIN,TOTAL 0.3 mg/dL (0.2-1.2); CALCIUM 8.2 mg/dL (8.4-10.2); CREATININE, SERUM 1.89 mg/dL (0.57-1.11); TOTAL PROTEIN 5.7 g/dL (6.5-8.1)
[2024-04-06 06:10] LABS: POTASSIUM 2.7 mmol/L (3.5-5.1)
[2024-04-06] MEDS: POTASSIUM CHLORIDE 20 MEQ TAB CR PO ONE (07:51)
[2024-04-06] MEDS: POTASSIUM CHLORIDE 20MEQ/100ML 100 ML IV ONE (07:52)
[2024-04-06] MEDS: ASPIRIN 81 MG CHEW TAB PO SCH (09:03)
[2024-04-06] MEDS: LACTOBACILLUS ACIDOPHILUS CAPSULE PO SCH ×2 (09:04→15:48)
[2024-04-06] MEDS: ATENOLOL 50 MG TAB PO SCH (09:04)
[2024-04-06] MEDS: MUPIROCIN 2% OINT 22 GM TUBE TOP SCH (11:49)
[2024-04-06 14:23] LABS: FERRITIN 476.9 ng/mL (4.63-204.00)
[2024-04-06 14:36] LABS: FOLATE 11.1 ng/mL (7.0-15.4)
[2024-04-06] MEDS: POTASSIUM CHLORIDE 10MEQ EA PO ONE (21:58)
[2024-04-07 04:11] VITALS: BP 161/58; PULSE 82; RESP 18; TEMP 98.8; O2SAT 95
[2024-04-07 06:10] LABS: BASOPHILS % 0.3 % (0.0-1.0); EOSINOPHILS # (AUTO) 0.2 (0.0-0.4); EOSINOPHILS % 3.4 % (0.0-6.0); HEMATOCRIT 34.9 % (34.2-44.1); HEMOGLOBIN 10.3 g/dL (12.0-16.0); LYMPHOCYTES # (AUTO) 0.8 (1.0-3.2); LYMPHOCYTES % 11.4 % (18.0-39.1); MEAN CORPUSCULAR HEMOGLOBIN 30.6 pg (28-32); MEAN CORPUSCULAR HGB CONC 29.5 g/dL (31-35); MEAN CORPUSCULAR VOLUME 103.6 fL (81-99); MONOCYTES # (AUTO) 0.3 (0.2-0.8); MONOCYTES % 4.3 % (4.4-11.3); NEUTROPHILS # (AUTO) 5.6 (2.1-6.9); NEUTROPHILS % 79.9 % (38.7-80.0); PLATELET COUNT 78 x10e3/uL (140-360); RED BLOOD COUNT 3.37 x10e6/uL (3.6-5.1); RED CELL DISTRIBUTION WIDTH 14.5 % (11.7-14.4); WHITE BLOOD COUNT 7.04 x10e3/uL (4.8-10.8)
[2024-04-07 06:37] LABS: ALBUMIN 2.4 g/dL (3.5-5.0); ALBUMIN/GLOBULIN RATIO 0.7 (0.8-2.0); ANION GAP 12.6 mmol/L (8-16); BILIRUBIN,TOTAL 0.2 mg/dL (0.2-1.2); CALCIUM 8.5 mg/dL (8.4-10.2); CREATININE, SERUM 1.82 mg/dL (0.57-1.11); MAGNESIUM 1.6 MG/DL (1.3-2.1); POTASSIUM 3.6 mmol/L (3.5-5.1)
[2024-04-07] MEDS: MAGNESIUM SULFATE 2GM/50ML 50 ML IV ONE (09:10)
[2024-04-07] MEDS: POTASSIUM CHLORIDE 10MEQ EA PO ONE (09:12)
[2024-04-07] MEDS: RIFAXIMIN 550 MG TABLET PO SCH (09:13)
[2024-04-07 09:19] VITALS: BP 167/60; PULSE 62; RESP 18; TEMP 98.2; O2SAT 98
[2024-04-07 10:36] LABS: BASOPHILS % 0.3 % (0.0-1.0); EOSINOPHILS # (AUTO) 0.1 (0.0-0.4); HEMATOCRIT 34.1 % (34.2-44.1); HEMOGLOBIN 9.9 g/dL (12.0-16.0); LYMPHOCYTES # (AUTO) 0.8 (1.0-3.2); MEAN CORPUSCULAR HEMOGLOBIN 30.4 pg (28-32); MEAN CORPUSCULAR VOLUME 104.6 fL (81-99); MONOCYTES # (AUTO) 0.2 (0.2-0.8); MONOCYTES % 3.1 % (4.4-11.3); NEUTROPHILS # (AUTO) 5.8 (2.1-6.9); NEUTROPHILS % 82.9 % (38.7-80.0); PLATELET COUNT 83 x10e3/uL (140-360); RED BLOOD COUNT 3.26 x10e6/uL (3.6-5.1); RED CELL DISTRIBUTION WIDTH 14.7 % (11.7-14.4)
[2024-04-07 11:39] LABS: EOSINOPHILS % (MANUAL) 3 % (0-7); LYMPHOCYTES % (MANUAL) 14 % (19-48); MONOCYTES % (MANUAL) 1 % (3.4-9.0); NEUTROPHILS % (MANUAL) 82 % (40-74); PLATELET ESTIMATE MODERATELY DECREASED
[2024-04-07 11:40] LABS: HYPOCHROMASIA SLIGHT
[2024-04-07 12:16] VITALS: BP 146/47; PULSE 71; RESP 18; TEMP 98.6; O2SAT 95
[2024-04-07 17:12] VITALS: BP 145/77; PULSE 63; RESP 20; TEMP 98.5; O2SAT 95
[2024-04-07 21:00] VITALS: BP 155/61; PULSE 68; RESP 18; TEMP 98.2; O2SAT 96
[2024-04-08] VITALS (7 sets, daily range): BP systolic 136–172; BP diastolic 48–93; PULSE 62–76; RESP 16–19; TEMP 97.2–98.3; O2SAT 95–100
[2024-04-08 06:01] LABS: BASOPHILS % 0.4 % (0.0-1.0); EOSINOPHILS # (AUTO) 0.3 (0.0-0.4); EOSINOPHILS % 5.6 % (0.0-6.0); HEMATOCRIT 31.7 % (34.2-44.1); HEMOGLOBIN 9.7 g/dL (12.0-16.0); LYMPHOCYTES # (AUTO) 1.1 (1.0-3.2); LYMPHOCYTES % 19.1 % (18.0-39.1); MEAN CORPUSCULAR HEMOGLOBIN 30.4 pg (28-32); MEAN CORPUSCULAR HGB CONC 30.6 g/dL (31-35); MEAN CORPUSCULAR VOLUME 99.4 fL (81-99); MONOCYTES # (AUTO) 0.3 (0.2-0.8); MONOCYTES % 5.8 % (4.4-11.3); NEUTROPHILS # (AUTO) 3.7 (2.1-6.9); NEUTROPHILS % 67.3 % (38.7-80.0); PLATELET COUNT 77 x10e3/uL (140-360); RED BLOOD COUNT 3.19 x10e6/uL (3.6-5.1); RED CELL DISTRIBUTION WIDTH 15.1 % (11.7-14.4); WHITE BLOOD COUNT 5.49 x10e3/uL (4.8-10.8)
[2024-04-08 06:33] LABS: ALBUMIN 2.3 g/dL (3.5-5.0); ALBUMIN/GLOBULIN RATIO 0.7 (0.8-2.0); ANION GAP 13.8 mmol/L (8-16); BILIRUBIN,TOTAL 0.2 mg/dL (0.2-1.2); CALCIUM 8.3 mg/dL (8.4-10.2); CREATININE, SERUM 1.63 mg/dL (0.57-1.11); POTASSIUM 3.8 mmol/L (3.5-5.1); TOTAL PROTEIN 5.8 g/dL (6.5-8.1)
[2024-04-09 00:37] VITALS: BP 142/68; PULSE 73; RESP 17; TEMP 98.3; O2SAT 99
[2024-04-09 04:05] VITALS: BP 171/60; PULSE 72; RESP 16; TEMP 98.1; O2SAT 99
[2024-04-09 07:00] LABS: BASOPHILS % 0.5 % (0.0-1.0); EOSINOPHILS # (AUTO) 0.3 (0.0-0.4); EOSINOPHILS % 4.9 % (0.0-6.0); HEMATOCRIT 31.4 % (34.2-44.1); LYMPHOCYTES # (AUTO) 1.4 (1.0-3.2); LYMPHOCYTES % 22.9 % (18.0-39.1); MEAN CORPUSCULAR HEMOGLOBIN 30.8 pg (28-32); MEAN CORPUSCULAR HGB CONC 31.8 g/dL (31-35); MEAN CORPUSCULAR VOLUME 96.6 fL (81-99); MONOCYTES # (AUTO) 0.4 (0.2-0.8); MONOCYTES % 6.4 % (4.4-11.3); NEUTROPHILS # (AUTO) 3.8 (2.1-6.9); NEUTROPHILS % 62.7 % (38.7-80.0); PLATELET COUNT 89 x10e3/uL (140-360); RED BLOOD COUNT 3.25 x10e6/uL (3.6-5.1); WHITE BLOOD COUNT 6.07 x10e3/uL (4.8-10.8)
[2024-04-09 07:34] LABS: ANION GAP 12.4 mmol/L (8-16); CALCIUM 8.1 mg/dL (8.4-10.2); CREATININE, SERUM 1.65 mg/dL (0.57-1.11)
[2024-04-09 07:35] LABS: POTASSIUM 3.4 mmol/L (3.5-5.1)
[2024-04-09 08:52] VITALS: BP 177/56; PULSE 69; RESP 18; TEMP 98.1; O2SAT 100
[2024-04-09] MEDS: POTASSIUM CHLORIDE 10MEQ EA PO ONE (11:28)
[2024-04-09 11:50] VITALS: BP 142/56; PULSE 66; RESP 20; TEMP 97.7; O2SAT 100
[2024-04-09] MEDS ORDERED: XIFAXAN550 MG PO (12:29)
[2024-04-09 16:47] VITALS: BP 148/58; PULSE 68; RESP 18; TEMP 98.4; O2SAT 100
== END 2024-04-09 16:15 | disposition home health service (06) | DRG 871 ==
LOC: ER 19:09 → ERHOLD 23:20 → MED/SURG2 04-05 00:22
PROVIDERS: ADMIT Internal Medicine; ATTEND Internal Medicine
PROC: 3E0333Z Introduction of Anti-inflammatory into Peripheral Vein, Percutaneous Approach (ICD-10-PCS; principal; 2024-04-04)
DX: A41.9 Sepsis, unspecified organism (principal); N17.0 Acute kidney failure with tubular necrosis; M84.48XA Pathological fracture, other site, initial encounter for fracture; E87.20 Acidosis, unspecified; A04.9 Bacterial intestinal infection, unspecified; R65.20 Severe sepsis without septic shock; Z66 Do not resuscitate; D69.6 Thrombocytopenia, unspecified; E86.0 Dehydration; I12.9 Hypertensive chronic kidney disease with stage 1 through stage 4 chronic kidney disease, or unspecified chronic kidney disease; N18.9 Chronic kidney disease, unspecified; D63.1 Anemia in chronic kidney disease; K58.0 Irritable bowel syndrome with diarrhea; F03.90 Unspecified dementia, unspecified severity, without behavioral disturbance, psychotic disturbance, mood disturbance, and anxiety; G62.9 Polyneuropathy, unspecified; Z11.52 Encounter for screening for COVID-19; I25.10 Atherosclerotic heart disease of native coronary artery without angina pectoris; D53.9 Nutritional anemia, unspecified; M19.90 Unspecified osteoarthritis, unspecified site; F33.41 Major depressive disorder, recurrent, in partial remission; Z95.5 Presence of coronary angioplasty implant and graft; Z88.0 Allergy status to penicillin; Z88.2 Allergy status to sulfonamides; Z88.5 Allergy status to narcotic agent; Z91.041 Radiographic dye allergy status; Z91.040 Latex allergy status; Z91.018 Allergy to other foods; Z90.710 Acquired absence of both cervix and uterus; Z86.19 Personal history of other infectious and parasitic diseases; Z84.1 Family history of disorders of kidney and ureter
CPT/HCPCS: 36415; 71045; 74176; 76705; 80048; 80053; 81001; 82550; 82607; 82728; 82746; 83540; 83605; 83630; 83735; 83993; 84132; 84466; 84484; 85025; 87040; 87045; 87086; 87177; 87324; 87328; 87449; 93005; 99252; 99284; J0692; J0696; J3475; J3480; J7030

== ENCOUNTER 2024-05-08 16:07 | Emergency (ER) | payer MEDICARE ==
[~2024-05-08] VITALS: Ht 160 cm; Wt 55.8 kg
[~2024-05-08 16:07] MED LIST changes: +ASPIRIN81 MG PO; +PROBIOTIC & AC1 EACH PO; +XIFAXAN550 MG PO
[2024-05-08 16:30] VITALS: PULSE 68; RESP 16; TEMP 98.1; O2SAT 97
[2024-05-08] MEDS: TETANUS/DIPHTHERIA TOX ADULT 0.5 ML SYR IM ONE (18:17)
== END 2024-05-08 18:21 | disposition home or self-care (01) ==
LOC: ER 17:01
DX: S01.01XA Laceration without foreign body of scalp, initial encounter (principal); W01.198A Fall on same level from slipping, tripping and stumbling with subsequent striking against other object, initial encounter; Y93.01 Activity, walking, marching and hiking; Y92.89 Other specified places as the place of occurrence of the external cause; I12.9 Hypertensive chronic kidney disease with stage 1 through stage 4 chronic kidney disease, or unspecified chronic kidney disease; N18.9 Chronic kidney disease, unspecified; I25.10 Atherosclerotic heart disease of native coronary artery without angina pectoris; Z79.82 Long term (current) use of aspirin; Z95.5 Presence of coronary angioplasty implant and graft
CPT/HCPCS: 70450; 72125; 90714; 99284

== ENCOUNTER 2024-05-18 15:26 | Emergency (ER) | payer MEDICARE ==
[2024-05-18 16:23] VITALS: PULSE 66; RESP 18; TEMP 99.1; O2SAT 97
[2024-05-18 17:09] VITALS: RESP 18
== END 2024-05-18 17:12 | disposition home or self-care (01) ==
LOC: FSED 16:16
DX: Z48.02 Encounter for removal of sutures (principal)
CPT/HCPCS: 99282; S0630